=== PATIENT | female | born 1955 | race African-American/Black ===

== ENCOUNTER 2017-08-03 12:33 | Emergency (ER) | payer MEDICAID ==
[~2017-08-03] VITALS: Ht 160 cm; Wt 72.6 kg
[~2017-08-03 12:33] MED LIST: ALPR1TAB7; [UNRECOGNIZED DRUG - CODE] PO; [UNRECOGNIZED DRUG - OTHER]
[2017-08-03 12:56] VITALS: BP 143/104
[2017-08-03] MEDS ORDERED: KETOROLAC TROMETH 60MG/2ML VIAL IM ONE (14:00)
== END 2017-08-03 14:44 | disposition home or self-care (01) ==
LOC: ER 12:33
DX: G89.29 Other chronic pain (principal); M54.5 Low back pain; M54.32 Sciatica, left side
CPT/HCPCS: 72100; 96372; 99284; J1885